=== PATIENT | female | born 1950 | race Caucasian/White ===

== ENCOUNTER → 2017-05-18 | Outpatient (CLI) | payer BC ==
[~2017-05-18] MED LIST: ASPIRIN 81M81 MG/TA2; ASPIRIN 81M81 MG/TA2 PO; CALCIUM 600/VIT1 CA1 PO; CARDENE 20MG CA20 M1 PO; FISH OIL1000 MG PO; LOPRESSOR 225 MG/TAB PO; VITAMIN B-1000 MCG/T PO; ZOFRAN ODT4 MG PO
== END ==
LOC: MC.RAD 10:19
DX: Z12.31 Encounter for screening mammogram for malignant neoplasm of breast (principal)

== ENCOUNTER 2017-08-31 07:58 | Day surgery (SDC) | payer BC ==
[~2017-08-31] VITALS: Ht 175.4 cm; Wt 68.1 kg
[2017-08-31] VITALS (7 sets, daily range): BP systolic 91–119; BP diastolic 48–75; PULSE 66–87; TEMP 97.8–98
[2017-08-31 09:14] LABS: HEMATOCRIT 42.1 % (37.0-47.0); HEMOGLOBIN 13.7 g/dl (12.5-16.0); MEAN CELL VOLUME 92 fl (80.0-100.0); MEAN CORPUSCULAR HEMOGLOBIN 30 pg (27.0-31.0); MEAN CORPUSCULAR HGB CONC 33 g/dl (33.0-37.0); MEAN PLATELET VOLUME 9.3 fl (7.4-10.4); PLATELET COUNT 227 K/mm3 (130-400); RED BLOOD COUNT 4.58 M/mm3 (4.10-5.30); REDCELL DISTRIBUTION WIDTH-CV 13.1 % (11.5-14.5)
[2017-08-31 09:19] LABS: PROTHROMBIN TIME 12.1 SECONDS (9.7-12.8)
[2017-08-31 09:24] LABS: CALCIUM 9.4 mg/dL (8.4-10.2); CREATININE, serum 0.76 mg/dL (0.52-1.25)
[2017-09-01 00:24] VITALS: BP 120/74; PULSE 72; TEMP 97.6
[2017-09-01 03:25] VITALS: BP 118/69; PULSE 74; TEMP 97.7
[2017-09-01 07:57] VITALS: BP 119/77; PULSE 78; TEMP 98
[2017-09-01] MEDS ORDERED: NORCO 325 MG-51 TAB PO (12:24)
[2017-09-01] MEDS ORDERED: CEPHALEXIN500 M1 PO (12:24)
== END 2017-09-01 13:11 | disposition home or self-care (01) ==
LOC: COL.CAR 07:58 → MEDICAL 12:16 → COL.CAR 09-01 13:11
PROVIDERS: Internal Medicine Cardiovascular Disease
DX: I49.5 Sick sinus syndrome (principal); I42.9 Cardiomyopathy, unspecified
CPT/HCPCS: OP; C1769; C1785; C1894; C1898; J0690; J2250; J2405; J3010; J7030

== ENCOUNTER → 2018-07-08 | Outpatient (CLI) | payer BC ==
[~2018-07-08] MED LIST changes: +CEPHALEXIN500 M1 PO; +NORCO 325 MG-51 TAB PO
== END ==
LOC: MC.RAD 06-16 09:40
DX: Z12.31 Encounter for screening mammogram for malignant neoplasm of breast (principal)

== ENCOUNTER → 2019-07-10 | Outpatient (CLI) | payer MEDICARE, OTHER | LOC: MC.RAD 09:23 | DX: Z12.31 Encounter for screening mammogram for malignant neoplasm of breast (principal); Z98.890 Other specified postprocedural states ==

== ENCOUNTER → 2020-08-06 | Outpatient (CLI) | payer MEDICARE, OTHER | LOC: MC.RAD 08:45 | DX: Z12.31 Encounter for screening mammogram for malignant neoplasm of breast (principal) ==

== ENCOUNTER → 2021-08-12 | Outpatient (CLI) | payer MEDICARE, OTHER | LOC: MC.RAD 14:17 | DX: Z12.31 Encounter for screening mammogram for malignant neoplasm of breast (principal); Z95.0 Presence of cardiac pacemaker ==

== ENCOUNTER → 2023-09-23 | Outpatient (CLI) | payer MEDICARE | LOC: MC.RAD 11:17 | DX: Z12.31 Encounter for screening mammogram for malignant neoplasm of breast (principal) ==